=== PATIENT | male | born 1965 | race Caucasian/White ===

== ENCOUNTER 2019-12-29 12:31 | Emergency (ER) | payer OTHER, SELFPAY ==
[2019-12-29] VITALS (7 sets, daily range): BP systolic 135–166; BP diastolic 79–94; PULSE 55–66; RESP 16–18; TEMP 36.8; O2SAT 98
--- NOTE | ~2019-12-29 | XR_ITS ---
EXAMINATION: XR chest 1V DATE: 12/29/2019 14:57 INDICATION: Shortness of breath. Lung nodule. TECHNIQUE: A single frontal view of the chest was obtained. COMPARISON: CT abdomen 05/13/2013 FINDINGS: The chest demonstrates clear lungs without pneumonia, pleural effusion, or pneumothorax. Th e heart size is normal. IMPRESSION: 1. No acute cardiopulmonary disease. Reviewed, dictated and finalized at location A.
--- NOTE | ~2019-12-29 | CT_ITS ---
EXAMINATION: CT BRAIN W/O DATE: 12/29/2019 14:53 INDICATION: Dizziness and weakness TECHNIQUE: Computed tomography (CT) of the head was performed without intravenous contrast. The dose- length product was 605.33 mGy-cm. The mA was adjusted according to patient size. Iterative reconstruc tion technique was employed. COMPARISON: No prior studies for comparison. FINDINGS: Normal brain parenchymal volume for age. Normal monreal-white differentiation. No acute intrac ranial hemorrhage, infarction, mass or mass effect. There is a focal hypodensity of the right basal g anglia which may represents a prominent perivascular space versus chronic lacunar infarction. There a re scattered mild periventricular and subcortical white matter changes, most likely related to small vessel ischemic disease (microangiopathy). There is intracranial atherosclerosis. No ventriculomegaly or midline shift. Midline sagittal images demonstrate a normal corpus callosum, c raniovertebral junction and sella turcica. Basilar cisterns are patent. Paranasal sinuses and mastoids are pneumatized. No depressed skull fractures. IMPRESSION: 1. No acute intracranial abnormality. 2: Focal hypodensity right basal ganglia, prominent perivascular space versus chronic lacunar infarct ion. 3: Chronic age-related findings. Reviewed, dictated and finalized at location A. IMPRESSION: 1. No acute intracranial abnormality. 2: Focal hypodensity right basal ganglia, prominent perivascular space versus c hronic lacunar infarction. 3: Chronic age-related findings.
--- NOTE | 2019-12-29 12:38 | ECG_ITS ---
Measurements Intervals [place] Rate: 53 P: 44 [place]: 159 QRS: -7 QRSD: 98 T: 14 QT: 417 QTc: 395 Interpretive Statements SINUS BRADYCARDIA BORDERLINE ECG Electronically Signed On 12-29-2019 13:02:31 CDT by Fan Jackson D.O.
[2019-12-29 12:50] LABS: Basophils Absolute Auto 0.1 K/mm3 (0.0-0.1); Basophils Percent Auto 0.7 % (0.2-1.2); Eosinophils Absolute Auto 0.2 K/mm3 (0-0.3); Eosinophils Percent Auto 2.1 % (0-4.4); Hematocrit 42.2 % (42.0-52.0); Hemoglobin 14.6 g/dL (14.0-18.0); Immature Granulocyte Absolute 0.03 K/mm3 (0.00-0.031); Immature Granulocyte Percent A 0.4 % (0-0.5); Lymphocytes Absolute Auto 1.97 K/mm3 (0.9-3.2); Mean Corpuscular HGB Conc 34.6 g/dl (32-36); Mean Corpuscular Hemoglobin 31.1 pg (26-34); Mean Corpuscular Volume 89.8 fl (80-100); Mean Platelet Volume 9.3 fl (7.4-10.4); Monocytes Absolute Auto 0.7 K/mm3 (0.1-0.6); Monocytes Percent Auto 8.5 % (2.6-8.5); Neutrophils Absolute Auto 5.3 K/mm3 (1.3-6.7); Neutrophils Percent Auto 64.3 % (45.5-73.1); Platelet Count Result 269 k/mm3 (150-375); Red Cell Distribution Width 12.8 % (11.5-14.5); White Blood Count 8.2 K/mm3 (4.5-10.0)
[2019-12-29 13:02] LABS: Anion Gap 14.2 mmol/L (7-16); Blood Urea Nitrogen 17 mg/dL (9-20); Calcium 9.3 mg/dL (8.4-10.2); Carbon Dioxide 20 mmol/L (22-30); Chloride 104 mmol/L (98-107); Estimated CRCL calculation 88 ml/min; Estimated Glomerular Filt Rate > 60; Glucose 107 mg/dL (75-110); Potassium 4.2 mmol/L (3.4-5.0); Sodium 134 mmol/L (137-145)
--- NOTE | 2019-12-29 14:42 | ED.GENADULT ---
HPI - General Adult General Chief complaint: Dizziness Stated complaint: SOB, dizzy for a couple months Time Seen by Provider: 12/29/19 12:41 Source: patient and family History of Present Illness HPI narrative: 54 years old white male presents with spell of shortness of breath and dizziness that started 2 months ago lasted for few minutes associated with tingling and numbness of the hands and toes. Patient been complaining of intermittent lightheadedness mainly when he works in a hot environment. Today patient was not able to continue working because of the heat. Came to the emergency room complaining of lightheadedness and general body aches. Patient denies any nausea, vomiting, chest pain, shortness of breath, headache. Patient does not smoke and drinks occasionally, does not use drugs. Does not take any medicine for any medical conditions. Related Data Home Medications Medication Instructions Recorded Confirmed aspirin [Aspir-81] 81 mg PO DAILY 12/29/19 Allergies Allergy/AdvReac Type Severity Reaction Status Date / Time cortizone Allergy Severe Anaphylactic Uncoded 12/29/19 12:42 Shock Contrast Media Allergy Intermediate Rash Uncoded 12/29/19 12:42 Review of Systems Review of Systems: Narrative: CONSTITUTIONAL: Denies fever, chills, or sweats. EYES: Denies visual changes, redness, or discharge. ENT: Denies rhinorrhea, congestion, sore throat, or otalgia. CARDIOVASCULAR: Denies chest pain, palpitations, or edema. RESPIRATORY: Denies cough or dyspnea. GASTROINTESTINAL: Denies abdominal pain, nausea, vomiting, or diarrhea. GENITOURINARY: Denies dysuria or hematuria. SKIN: Denies rash or itching. MUSCULOSKELETAL: Denies back pain, joint pain, or myalgia. NEUROLOGIC: Denies headache, numbness, or weakness. PSYCHIATRIC: Denies anxiety or depression. PMFSH Social History Social History Gender identity (if verbalized by the patient): Male Exam Narrative: Exam Narrative: General appearance: Well-developed, well-nourished Skin: Normal color Head: Normocephalic, nontraumatic Eyes: Clear conjunctiva ENT: Oropharynx normal, ears normal, nose normal Neck: Supple, nontender Chest and respiratory: Airway patent, no respiratory distress, no accessory muscle use Heart: Regular rate/rhythm Abdomen: Soft, nontender, no organomegaly, quiet bowel sounds Vascular: Normal peripheral pulses, normal capillary refill. Musculoskeletal: Normal range of motion, nontender back Neurologic: Alert and oriented ?3, [employer] REPRESENTATIVE is normal as tested, no gross motor deficit Course Course Emergency Course: Improving Vital Signs Vital signs: Vital Signs Temperature 36.8 C 12/29/19 12:38 Pulse Rate 55 L 12/29/19 12:38 Respiratory Rate 16 12/29/19 12:38 Blood Pressure 163/79 H 12/29/19 12:38 Pulse Oximetry 98 12/29/19 12:38 Temperature 36.8 C 12/29/19 12:38 Pulse Rate 56 L 12/29/19 14:10 Respiratory Rate 16 12/29/19 14:10 Blood Pressure 135/79 12/29/19 14:10 Pulse Oximetry 98 12/29/19 14:10 Medical Decision Making MDM Narrative Medical decision making narrative: Heat exhaustion is my concern. My plan to get labs, UA, CPK. Start IV fluid, further plan to follow. The symptom of shortness of breath and dizziness started once 2 months ago. Patient did not go to any hospital, did not follow-up with his doctor at that time. Patient reports intermittent lightheadedness and dizziness, stop spins around. I plan to scan his head, chest x-ray and EKG. Further plan to follow Differential Diagnosis Differential Diagnosis: Heat exhaustion, electrolyte imbalance, benign positional vertigo
--- NOTE | 2019-12-29 14:56 | PC.NURSE ---
PT IN RADIOLOGY AT THIS TIME. WILL MEDICATE PER PROVIDER ORDER UPON RETURN.
[2019-12-29 15:04] LABS: Creatine Kinase 112 U/L (55-170)
[2019-12-29] MEDS: SODIUM CHLORIDE 0.9% IV 1,000 ML 999 ML IV CONT (15:15)
[2019-12-29 15:50] LABS: Add Urine Microscopic? NO; Appearance Urine Clear (Clear); Bilirubin Urine Negative (Negative); Blood Urine Negative (Negative); Color Urine Straw (Yellow); Glucose Urine UA Negative (Negative); Ketones Urine Negative (Negative); Leukocyte Esterase Ur Negative LEU/UL (Negative); Nitrate Urine Negative (Negative); Protein Urine Negative (Negative); Specific Grav Ur 1.015 (1.001-1.035); Urobilinogen Urine Negative mg/dL (<2.0)
== END 2019-12-29 16:32 | disposition home or self-care (01) ==
PROVIDERS: Emergency Medicine; Emergency Provider Emergency Medicine; PCP Family Medicine
DX: T67.5XXA Heat exhaustion, unspecified, initial encounter (principal); R42 Dizziness and giddiness; Z79.82 Long term (current) use of aspirin; R00.1 Bradycardia, unspecified
CPT/HCPCS: 36415; 70450; 71045; 80048; 81003; 82550; 85025; 93005; 96360; 99284; J7030